=== PATIENT | female | born 1970 | race Caucasian/White ===

== ENCOUNTER 2018-02-09 15:51 | Emergency (ER) | payer SELFPAY ==
--- NOTE | 2018-02-09 17:18 | EDPHYS ---
Physician Documentation [facility] Name: Milady Peoples Age: 48 yrs Sex: Female : 1970 Arrival Date: 02/09/2018 Time: 15:57 Bed 12 Private MD: None, None ED Physician Rad Trejo HPI: 02/09 17:15 This 48 yrs old Female presents to ER via Ambulatory with complaints of Sore kb Throat. 17:15 The patient presents with sore throat. The patient describes throat pain as constant. kb Onset: The symptoms/episode began/occurred 4 day(s) ago. Severity of symptoms: At their worst the symptoms were moderate, in the emergency department the symptoms are unchanged. Modifying factors: The symptoms are alleviated by nothing, the symptoms are aggravated by swallowing, Patient's oral intake status: good Denies contact with similarly ill indivduals. Associated signs and symptoms: Pertinent positives: chills, cough, earache, fever, flu-like symptoms, Sore throat. The patient has not experienced similar symptoms in the past. The patient has not recently seen a physician. 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 - Social history:: Smoking status: Patient/guardian denies using tobacco, Patient/guardian denies using alcohol. - Ebola Screening: : Patient negative for fever greater than or equal to 101.5 degrees Fahrenheit, and additional compatible Ebola Virus Disease symptoms Patient denies exposure to infectious person Patient denies travel to an Ebola-affected area in the 21 days before illness onset. ROS: 17:14 Neck: Negative for injury, pain, and swelling, Cardiovascular: Negative for chest pain, kb palpitations, and edema, Abdomen/GI: Negative for abdominal pain, nausea, vomiting, diarrhea, and constipation, Back: Negative for injury and pain, MS/Extremity: Negative for injury and deformity, Skin: Negative for injury, rash, and discoloration, Neuro: Negative for headache, weakness, numbness, tingling, and seizure. 17:14 Constitutional: Positive for chills, fever, malaise, Negative for body aches, fatigue, poor PO intake, weight loss. 17:14 ENT: Positive for drainage from ear(s), ear pain, rhinorrhea, sinus congestion, sinus pain, sore throat. 17:14 Respiratory: Positive for cough, Negative for dyspnea on exertion, hemoptysis, orthopnea, pleurisy, shortness of breath, sputum production, wheezing. Exam: 17:14 Constitutional: This is a well developed, well nourished patient who is awake, alert, kb and in no acute distress. Head/Face: Normocephalic, atraumatic. Neck: Trachea midline, no thyromegaly or masses palpated, and no cervical lymphadenopathy. Supple, full range of motion without nuchal rigidity, or vertebral point tenderness. No Meningismus. Chest/axilla: Normal chest wall appearance and motion. Nontender with no deformity. No lesions are appreciated. Cardiovascular: Regular rate and rhythm with a normal S1 and S2. No gallops, murmurs, or rubs. Normal PMI, no JVD. No pulse deficits. Respiratory: Lungs have equal breath sounds bilaterally, clear to auscultation and percussion. No rales, rhonchi or wheezes noted. No increased work of breathing, no retractions or nasal flaring. Abdomen/GI: Soft, non-tender, with normal bowel sounds. No distension or tympany. No guarding or rebound. No evidence of tenderness throughout. Back: No spinal tenderness. No costovertebral tenderness. Full range of motion. Skin: Warm, dry with normal turgor. Normal color with no rashes, no lesions, and no evidence of cellulitis. MS/ Extremity: Pulses equal, no cyanosis. Neurovascular intact. Full, normal range of motion. Neuro: Awake and alert, GCS 15, oriented to person, place, time, and situation. Cranial nerves II-XII grossly intact. Motor strength 5/5 in all extremities. Sensory grossly intact. Cerebellar exam normal. Normal gait. 17:14 ENT: External ear(s): are unremarkable, Ear canal(s): purulent discharge, that is minimal, in the left canal, swelling, that is moderate, of the left canal, TM's: bulging, bilaterally. Vital Signs: 16:05 BP 114 / 99; Pulse 105; Resp 18; Temp 98.0(TE); Pulse Ox 98% on R/A; Weight 122.47 kg; hj Height 5 ft. 1 in. (154.94 cm); Pain 8/10; 17:35 BP 120 / 70; Pulse 90; Resp 17; Pulse Ox 100% on R/A; Pain 0/10; mg2 16:05 Body Mass Index 51.02 (122.47 kg, 154.94 cm) hj MDM: 16:20 Patient medically screened. kb 17:15 Data reviewed: vital signs, nurses notes. Data interpreted: Pulse oximetry: on room air kb is 98 %. Interpretation: normal. Counseling: I had a detailed discussion with the patient and/or guardian regarding: the historical points, exam findings, and any diagnostic results supporting the discharge/admit diagnosis, lab results, the need for outpatient follow up, a family practitioner, to return to the emergency department if symptoms worsen or persist or if there are any questions or concerns that arise at home. 02/09 16:07 Order name: Flu; Complete Time: 16:38 02/09 16:07 Order name: Strep; Complete Time: 16:33 02/09 16:27 Order name: Throat Culture EDMS Administered Medications: 17:23 Drug: Clindamycin 300 mg Route: PO; mg2 17:23 Follow up: Response: No adverse reaction; Medication administered at discharge. mg2 Disposition: 02/10 15:56 Co-signature as Attending Physician, Rad Trejo MD I agree with the assessment and kdr plan of care. Disposition: 02/09/18 17:17 Discharged to Home. Impression: Otitis media, unspecified, bilateral, Unspecified otitis externa, left ear, Acute sinusitis. - Condition is Stable. - Discharge Instructions: Otitis Externa, [id number], Otitis Media, Adult, Hmwm-du-Lgem, Sinusitis, Adult, [id number]-[id number]. - Prescriptions for Clindamycin HCl 300 mg Oral Capsule - take 1 capsule by ORAL route every 6 hours for 10 days; 40 capsule. Ciprodex 0.3- 0.1 % Otic Drops, Suspension - instill 4 drop by OTIC route every 12 hours for 7 days , for ears ONLY; 1 Container. - Medication Reconciliation Form, Thank You Letter, Antibiotic Education, Prescription Opioid Use form. - Follow up: Emergency Department; When: As needed; Reason: Worsening of condition. Follow up: Private Physician; When: 2 - 3 days; Reason: Recheck today's complaints, Continuance of care, Re-evaluation by your physician. Signatures: Dispatcher [employer] EDMS Dayna Whalen, MACHINE TOOL TECHNICIAN INSTRUCTOR-C MACHINE TOOL TECHNICIAN INSTRUCTOR-Ckb Rda Trejo MD MD [facility] Mati Mares RN RN Fabrice Ramirez RN RN mg2 Corrections: (The following items were deleted from the chart) 02/09 17:36 17:17 02/09/2018 17:17 Discharged to Home. Impression: Otitis media, unspecified, mg2 bilateral; Unspecified otitis externa, left ear; Acute sinusitis. Condition is Stable. Forms are Medication Reconciliation Form, Thank You Letter, Antibiotic Education, Prescription Opioid Use. Follow up: Emergency Department; When: As needed; Reason: Worsening of condition. Follow up: Private Physician; When: 2 - 3 days; Reason: Recheck today's complaints, Continuance of care, Re-evaluation by your physician. kb
--- NOTE | 2018-02-09 17:18 | ER ---
Nurse's Notes [facility] Name: Milady Peoples Age: 48 yrs Sex: Female : 1970 Arrival Date: 02/09/2018 Time: 15:57 Bed 12 Private MD: None, None Diagnosis: Otitis media, unspecified, bilateral;Unspecified otitis externa, left ear;Acute sinusitis Presentation: 02/09 16:03 Presenting complaint: Patient states: i have sore throat that started Friday and my L hj ear is aching too; reports chills and low grade fever; took Robitussin thsi AM;. Transition of care: patient was not received from another setting of care. Onset of symptoms was February 09, 2018. Risk Assessment: Do you want to hurt yourself or someone else? Patient reports no desire to harm self or others. Initial Sepsis Screen: Does the patient meet any 2 criteria? No. Patient's initial sepsis screen is negative. Does the patient have a suspected source of infection? No. Patient's initial sepsis screen is negative. Care prior to arrival: None. 16:03 Method Of Arrival: Ambulatory 16:03 Acuity: BENJAMÍN 4 hj Triage Assessment: 16:05 General: Appears in no apparent distress. uncomfortable, Behavior is calm, cooperative, hj appropriate for age. Pain: Complains of pain in throat, body. EENT: Reports pain. 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 - Social history:: Smoking status: Patient/guardian denies using tobacco, Patient/guardian denies using alcohol. - Ebola Screening: : Patient negative for fever greater than or equal to 101.5 degrees Fahrenheit, and additional compatible Ebola Virus Disease symptoms Patient denies exposure to infectious person Patient denies travel to an Ebola-affected area in the 21 days before illness onset. Screenin:05 Abuse screen: Denies threats or abuse. Denies injuries from another. Nutritional hj screening: No deficits noted. Tuberculosis screening: No symptoms or risk factors identified. Fall Risk None identified. Assessment: 16:05 Respiratory: Airway is patent Respiratory effort is even, unlabored, Respiratory hj pattern is regular, symmetrical, Breath sounds are clear. EENT: Throat. 17:13 General: Appears in no apparent distress. comfortable, Behavior is calm, cooperative. mg2 Pain: Complains of pain in throat Pain does not radiate. Pain currently is 4 out of 10 on a pain scale. Quality of pain is described as aching, Pain began gradually, 2-3 days ago. Is intermittent. Neuro: Level of Consciousness is awake, alert, obeys commands, Oriented to person, place, time, situation. Cardiovascular: Capillary refill < 3 seconds Patient's skin is warm and dry. GI: No signs and/or symptoms were reported involving the gastrointestinal system. : No signs and/or symptoms were reported regarding the genitourinary system. Derm: Skin is intact, is healthy with good turgor, Skin is pink, warm \T\ dry. normal. Musculoskeletal: No signs and/or symptoms reported regarding the musculoskeletal system. Vital Signs: 16:05 BP 114 / 99; Pulse 105; Resp 18; Temp 98.0(TE); Pulse Ox 98% on R/A; Weight 122.47 kg; hj Height 5 ft. 1 in. (154.94 cm); Pain 8/10; 17:35 BP 120 / 70; Pulse 90; Resp 17; Pulse Ox 100% on R/A; Pain 0/10; mg2 16:05 Body Mass Index 51.02 (122.47 kg, 154.94 cm) ED Course: 15:57 Patient arrived in ED. mr 15:57 None, None is Private Physician. mr 16:04 Triage completed. hj 16:05 Arm band placed on right wrist. hj 16:07 Patient has correct armband on for positive identification. Bed in low position. Call light in reach. Side rails up X 1. Adult w/ patient. 16:18 Fabrice Ramirez, HELEN is Primary Nurse. mg2 16:19 Dayna Whalen FNP-C is PHCP. kb 16:19 Rad Trejo MD is Attending Physician. kb 16:19 No provider procedures requiring assistance completed. Patient did not have IV access mg2 during this emergency room visit. 16:26 Strep Sent. hj 16:26 Flu Sent. hj Administered Medications: 17:23 Drug: Clindamycin 300 mg Route: PO; mg2 17:23 Follow up: Response: No adverse reaction; Medication administered at discharge. mg2 Outcome: 17:17 Discharge ordered by . michell 17:35 Discharged to home ambulatory. mg2 17:35 Condition: improved 17:35 Discharge instructions given to patient, Instructed on discharge instructions, follow up and referral plans. Demonstrated understanding of instructions, follow-up care, medications, Prescriptions given X 2. 17:36 Patient left the ED. mg2 Signatures: Dayna Whalen, PROCESS DESCRIPTION WRITER-C PROCESS DESCRIPTION WRITER-Milady West mr Mati Mares, RN RN Fabrice Cisse, HELEN RN mg2 Corrections: (The following items were deleted from the chart) 16:08 16:05 Pulse 105bpm; Resp 18bpm; Pulse Ox 98% RA; Temp 98.0F Temporal; 122.47 kg; Height 5 ft. 1 in.; BMI: 51.0; Pain 8/10; hj
[2018-02-09] MEDS ORDERED: CLINDAMYCIN HCL 150 MG CAP ONE ×2 (17:25→17:32)
== END 2018-02-09 17:36 | disposition home or self-care (01) ==
LOC: ER 15:51
DX: H66.93 Otitis media, unspecified, bilateral (principal); H60.92 Unspecified otitis externa, left ear; J01.90 Acute sinusitis, unspecified; Z88.0 Allergy status to penicillin; Z88.1 Allergy status to other antibiotic agents; Z88.5 Allergy status to narcotic agent; Z88.6 Allergy status to analgesic agent
CPT/HCPCS: 87070; 87081; 87804; 99283

== ENCOUNTER 2018-03-26 07:51 | Emergency (ER) | payer SELFPAY ==
[2018-03-26] MEDS ORDERED: FENTANYL CITR 100 MCG/2 ML ONE (08:46)
[2018-03-26] MEDS ORDERED: NA CHLORIDE 0.9% 1,000 ML ONE (08:46)
[2018-03-26 08:59] LABS: Absolute Lymphocytes (CBC) 1.8 K/uL (0.7-4.9); Absolute Monocytes 0.7 K/uL (0.1-1.3); Absolute Neutrophil 4.7 K/uL (1.8-8.0); Basophils % 1.1 % (0-1.3); Eosinophils % 2.2 % (0-4.4); Hematocrit 39.7 % (36.0-45.0); Lymphocytes % 24.1 % (15.3-44.8); MPV 8.5 fL (7.6-11.3); Monocytes % 9.2 % (3.3-12.3)
[2018-03-26 09:09] LABS: Urine Blood NEGATIVE (NEG); Urine Glucose NEGATIVE (NEG); Urine Protein NEGATIVE (NEG); Urine pH 5.5 (5.0-7.0)
[2018-03-26 09:11] LABS: Urine Bacteria <20 /HPF (<20); Urine Culture Reflex Order NOT NEEDED; Urine RBC NONE SEEN /HPF (NONE SEEN)
[2018-03-26 09:24] LABS: Albumin 3.9 g/dL (3.4-5.0); Bilirubin Direct 0.1 mg/dL (0-0.2); Bilirubin Total 0.5 mg/dL (0.2-1.0); Potassium 4.6 mmol/L (3.5-5.1); Protein, Total 8.2 g/dL (6.4-8.2)
--- NOTE | 2018-03-26 09:51 | RAD REPORT ---
EXAM DESCRIPTION: CT - Stone Protocol - 03/26/2018 8:57 am CLINICAL HISTORY: Abdominal pain COMPARISON: None. TECHNIQUE: Axial [address] imaging of the abdomen and pelvis was performed without IV contrast. No IV contrast was given because of allergy, abnormal renal function, patient refusal or physician re quest. No oral contrast administered. All CT scans are performed using dose optimization technique as appropriate and may include automated exposure control or mA/KV adjustment according to patient size. FINDINGS: No suspicious findings in the lung bases. No pericardial thickening or effusion. The liver, spleen and pancreas show no suspicious findings on non-contrast imaging. Liver attenuation is borderline to mildly fatty infiltrated. Cholecystectomy clips are present. No biliary tree dilata tion. No hydronephrosis or suspicious renal mass. No significant adrenal finding. Isodense renal masses an d pyelonephritis cannot be excluded in the absence of IV contrast. Urinary bladder is mostly contract ed limiting assessment. No bladder calculus. Patient has numerous phleboliths in the pelvic floor. Ut erus and ovaries show no suspicious findings. Uterine contour is minimally lobulated. Patient may hav e small fibroids but no acute or significant finding at this time. No dilated bowel loops or bowel wall thickening. Appendix is normal. No free air, free fluid or infla mmatory stranding. No mass or bulky lymphadenopathy. No omental thickening. Patient has a 6 centimete r fat only periumbilical hernia with a 4.5 centimeter neck. No congested or edematous fat within this hernia. Disc and bony degenerative changes are present. No acute bone finding. IMPRESSION: No hydronephrosis, obstructing calculus or acute finding identifiable. Isodense zamzam s and pyelonephritis are not excluded on a noncontrast study. No acute GI or OPTICAL INSTRUMENT INSPECTOR process. Liver is borderline to mildly fatty infiltrated. Gallbladder is out with no biliary tree dilatation. A 6 centimeter periumbilical ventral hernia is seen with no acute component. This contains only fat. Full assessment is limited is the absence of IV contrast.
[2018-03-26] MEDS ORDERED: KETOROLAC 30 MG/ML INJ ONE (11:30)
[2018-03-26] MEDS ORDERED: PROMETHAZINE 25 MG/ML VIAL ONE (11:30)
--- NOTE | 2018-03-26 11:58 | ER ---
Nurse's Notes [facility] Name: Milady Peoples Age: 48 yrs Sex: Female : 1970 Arrival Date: 03/26/2018 Time: 07:53 Bed 20 Private MD: Diagnosis: Headache;Lower abdominal pain, unspecified Presentation: 03/26 07:59 Presenting complaint: Patient states: since Friday I have been having a migraine and friday i started having stomach pain on my lower right stomach and it hurts into my back, nauseous. Transition of care: patient was not received from another setting of care. Onset of symptoms was March 26, 2018. Risk Assessment: Do you want to hurt yourself or someone else? Patient reports no desire to harm self or others. Initial Sepsis Screen: Does the patient meet any 2 criteria? HR > 90 bpm. No. Patient's initial sepsis screen is negative. Does the patient have a suspected source of infection? No. Patient's initial sepsis screen is negative. Care prior to arrival: None. 07:59 Method Of Arrival: Ambulatory tw 07:59 Acuity: BENJAMÍN 3 tw2 Triage Assessment: 08:09 Headache History: The patient has had previous headaches and this one is similar to tw2 previous episodes. General: Appears in no apparent distress. obese, Behavior is calm, cooperative, appropriate for age. Pain: Pain currently is 9 out of 10 on a pain scale. Pain began 2-3 days ago. Also complains of nausea, photophobia. Neuro: Level of Consciousness is awake, alert, obeys commands, Oriented to person, place, time, situation. 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 - Social history:: Smoking status: . - Ebola Screening: : Patient denies travel to an Ebola-affected area in the 21 days before illness onset. Screenin:03 Abuse screen: Denies threats or abuse. Nutritional screening: No deficits noted. tw2 Tuberculosis screening: No symptoms or risk factors identified. Fall Risk None identified. Assessment: 08:10 General: Appears in no apparent distress. obese, Behavior is calm, cooperative, tw2 appropriate for age. Pain: Complains of pain in head and lower right abdomen and back. Neuro: Level of Consciousness is awake, alert, obeys commands, Oriented to person, place, time, situation. Cardiovascular: Heart tones S1 S2 Patient's skin is warm and dry. Respiratory: Airway is patent Respiratory effort is even, unlabored, Respiratory pattern is regular, symmetrical, Breath sounds are clear bilaterally. GI: Abdomen is round non-distended, obese, Bowel sounds present X 4 quads. Reports lower abdominal pain, nausea. : No signs and/or symptoms were reported regarding the genitourinary system. EENT: No signs and/or symptoms were reported regarding the EENT system. Derm: No signs and/or symptoms reported regarding the dermatologic system. Musculoskeletal: Reports pain in back. 09:07 Reassessment: Patient appears in no apparent distress at this time. No changes from tw2 previously documented assessment. Patient and/or family updated on plan of care and expected duration. Pain level reassessed. Patient is alert, oriented x 3, equal unlabored respirations, skin warm/dry/pink. 10:28 Reassessment: Patient states that her headache has not gotten any better and she would aj1 like something else for pain. Notified Laura Villalpando NP. No orders received at this time. 11:30 Reassessment: Patient appears in no apparent distress at this time. No changes from aj1 previously documented assessment. Patient and/or family updated on plan of care and expected duration. Pain level reassessed. Patient is alert, oriented x 3, equal unlabored respirations, skin warm/dry/pink. 12:20 Reassessment: Patient appears in no apparent distress at this time. No changes from aj1 previously documented assessment. Patient and/or family updated on plan of care and expected duration. Pain level reassessed. Patient is alert, oriented x 3, equal unlabored respirations, skin warm/dry/pink. Vital Signs: 08:00 BP 145 / 101; Pulse 97; Resp 18; Temp 98.2(O); Pulse Ox 97% on R/A; Pain 9/10; tw2 09:07 BP 150 / 92; Pulse 85; Resp 17; Pulse Ox 96% on R/A; tw2 10:29 BP 114 / 77; Pulse 85; Resp 18; Pulse Ox 97% on R/A; aj1 11:30 BP 112 / 95; Pulse 66; Resp 18; Pulse Ox 96% on R/A; aj1 12:21 BP 116 / 82; Pulse 75; Resp 18; Pulse Ox 99% on R/A; aj1 Remington Coma Score: 11:59 Eye Response: spontaneous(4). Verbal Response: oriented(5). Motor Response: obeys snw commands(6). Total: 15. ED Course: 07:53 Patient arrived in ED. as 07:56 Danuta Villalpando FNP-C is [facility]. snw 07:58 Debbie Covington RN is Primary Nurse. tw2 07:59 Rad Trejo MD is Attending Physician. snw 08:00 Triage completed. tw2 08:03 Arm band placed on. tw2 08:08 Bed in low position. Call light in reach. Pulse ox on. NIBP on. tw2 08:12 Urine --Ancillary (enter results) Sent. tw2 08:12 Urine Dipstick--Ancillary (enter results) Sent. tw2 08:47 Missed attempt(s): 22 gauge in left antecubital area. Bleeding controlled, band aid tw2 applied, catheter tip intact. Missed attempt(s): 22 gauge in left antecubital area. Bleeding controlled, band aid applied, catheter tip intact. 08:50 Inserted saline lock: 22 gauge in left antecubital area, using aseptic technique. tw2 ,using aseptic technique. per Shameka Andrews, class c driver Blood collected. 08:55 CT completed. Patient tolerated procedure well. Patient moved to CT via wheelchair. sj Patient moved back from CT. 09:09 CT Stone Protocol In Process Unspecified. EDMS 09:55 Report given to HELEN Nair. tw2 12:21 No provider procedures requiring assistance completed. IV discontinued, intact, aj1 bleeding controlled, No redness/swelling at site. Pressure dressing applied. Administered Medications: 08:51 Drug: NS 0.9% 1000 ml Route: IV; Rate: 1 bolus; Site: left antecubital; tw2 11:47 Follow up: IV Status: Completed infusion; IV Intake: 1000ml aj1 08:51 Drug: fentaNYL (PF) 25 mcg Route: IVP; Site: left antecubital; tw2 10:00 Follow up: Response: No adverse reaction aj1 10:00 Follow up: Response: Pain is unchanged, physician notified aj1 11:31 Drug: Phenergan 6.25 mg Route: IVP; Site: left antecubital; aj1 12:21 Follow up: Response: No adverse reaction; Pain is decreased aj1 11:31 Drug: TORadol 30 mg Route: IVP; Site: left antecubital; aj1 12:22 Follow up: Response: No adverse reaction; Pain is decreased aj Intake: 11:47 IV: 1000ml; Total: 1000ml. aj1 Outcome: 11:57 Discharge ordered by . shmuel 12:21 Discharged to home ambulatory. aj1 12:21 Condition: good 12:21 Discharge instructions given to patient, Instructed on discharge instructions, follow up and referral plans. medication usage, Demonstrated understanding of instructions, follow-up care, medications, Prescriptions given X 2. 12:22 Patient left the ED. aj1 Signatures: Dispatcher [employer] Es Valdez, RN RN aj1 Danuta Villalpando, LOFT WORKER APPRENTICE-C LOFT WORKER APPRENTICE-Shameka Garcia Amelia as Wise, Tara, RN RN tw2
--- NOTE | 2018-03-26 11:58 | EDPHYS ---
Physician Documentation [facility] Name: Milady Peoples Age: 48 yrs Sex: Female : 1970 Arrival Date: 03/26/2018 Time: 07:53 Bed 20 Private MD: ED Physician Rad Trejo HPI: 03/26 08:52 This 48 yrs old Female presents to ER via Ambulatory with complaints of snw Headache, Abdominal Pain. 08:52 The patient complains of pain to the entire head. The patient describes the headache as snw intermittent. Onset: The symptoms/episode began/occurred 4 day(s) ago, and became persistent. Associated signs and symptoms: Pertinent positives: nausea, abdominal pain. Severity of symptoms: At its worst the pain was moderate. Headache History: Other + family hx of migraine. The patient has not experienced similar symptoms in the past. The patient has not recently seen a physician. STRE[facility] [employer]: 08:09 LMP 03/13/2018 tw2 Historical: - Allergies: 08:02 Aspirin; tw2 08:02 Codeine; tw2 08:02 PENICILLINS; tw2 08:02 zpac; tw2 - Home Meds: 08:02 Adipex-P 37.5 mg oral tab 0.5 tab 2 times per day [Active]; tw2 - PMHx: 08:02 None; tw2 - PSHx: 08:02 R arm; Cholecystectomy; cleft palate; tw2 - Immunization history:: Adult Immunizations. - Social history:: Smoking status: . - Ebola Screening: : Patient denies travel to an Ebola-affected area in the 21 days before illness onset. ROS: 08:50 Constitutional: Negative for fever, chills, and weight loss, Eyes: Negative for injury, snw pain, redness, and discharge, ENT: Negative for injury, pain, and discharge, Neck: Negative for injury, pain, and swelling, Cardiovascular: Negative for chest pain, palpitations, and edema, Respiratory: Negative for shortness of breath, cough, wheezing, and pleuritic chest pain. 08:50 : Negative for injury, bleeding, discharge, and swelling, MS/Extremity: Negative for injury and deformity, Skin: Negative for injury, rash, and discoloration. 08:50 Abdomen/GI: Positive for abdominal pain, nausea. 08:50 Back: Positive for radiated pain. 08:50 Neuro: Positive for headache. Exam: 08:50 Head/Face: Normocephalic, atraumatic. Eyes: Pupils equal round and reactive to light, snw extra-ocular motions intact. Lids and lashes normal. Conjunctiva and sclera are non-icteric and not injected. Cornea within normal limits. Periorbital areas with no swelling, redness, or edema. ENT: Nares patent. No nasal discharge, no septal abnormalities noted. Tympanic membranes are normal and external auditory canals are clear. Oropharynx with no redness, swelling, or masses, exudates, or evidence of obstruction, uvula midline. Mucous membranes moist. Neck: Trachea midline, no thyromegaly or masses palpated, and no cervical lymphadenopathy. Supple, full range of motion without nuchal rigidity, or vertebral point tenderness. No Meningismus. Chest/axilla: Normal chest wall appearance and motion. Nontender with no deformity. No lesions are appreciated. Cardiovascular: Regular rate and rhythm with a normal S1 and S2. No gallops, murmurs, or rubs. Normal PMI, no JVD. No pulse deficits. Respiratory: Lungs have equal breath sounds bilaterally, clear to auscultation and percussion. No rales, rhonchi or wheezes noted. No increased work of breathing, no retractions or nasal flaring. 08:50 Back: No spinal tenderness. No costovertebral tenderness. Full range of motion. Skin: Warm, dry with normal turgor. Normal color with no rashes, no lesions, and no evidence of cellulitis. MS/ Extremity: Pulses equal, no cyanosis. Neurovascular intact. Full, normal range of motion. Neuro: Awake and alert, GCS 15, oriented to person, place, time, and situation. Cranial nerves II-XII grossly intact. Motor strength 5/5 in all extremities. Sensory grossly intact. Cerebellar exam normal. Normal gait. 08:50 Constitutional: The patient appears alert, awake, obese. 08:50 Abdomen/GI: Inspection: abdomen appears normal, obese Bowel sounds: normal, Palpation: mild abdominal tenderness, in the right lower quadrant. Vital Signs: 08:00 BP 145 / 101; Pulse 97; Resp 18; Temp 98.2(O); Pulse Ox 97% on R/A; Pain 9/10; tw2 09:07 BP 150 / 92; Pulse 85; Resp 17; Pulse Ox 96% on R/A; tw2 10:29 BP 114 / 77; Pulse 85; Resp 18; Pulse Ox 97% on R/A; aj1 11:30 BP 112 / 95; Pulse 66; Resp 18; Pulse Ox 96% on R/A; aj1 12:21 BP 116 / 82; Pulse 75; Resp 18; Pulse Ox 99% on R/A; aj1 [place] Coma Score: 11:59 Eye Response: spontaneous(4). Verbal Response: oriented(5). Motor Response: obeys snw commands(6). Total: 15. MDM: 08:04 Patient medically screened. snw 11:59 Data reviewed: vital signs, nurses notes. Data interpreted: Pulse oximetry: on room air snw is 96 %. Interpretation: acceptable. Counseling: I had a detailed discussion with the patient and/or guardian regarding: the historical points, exam findings, and any diagnostic results supporting the discharge/admit diagnosis, lab results, radiology results, the need for outpatient follow up, to return to the emergency department if symptoms worsen or persist or if there are any questions or concerns that arise at home. Special discussion: Based on the patient's Hx, exam, and Dx evaluation, there is no indication for emergent surgery or inpatient Tx. It is understood by the patient/guardian that if the Sx's persist or worsen they need to return immediately for re-evaluation. Based on the history and exam findings, there is no indication for further emergent testing or inpatient evaluation. I discussed with the patient/guardian the need to see the primary care provider for further evaluation of the symptoms. 03/26 08:10 Order name: Urine Dipstick--Ancillary (enter results); Complete Time: 09:17 em1 03/26 08:10 Order name: Urine --Ancillary (enter results); Complete Time: 09:17 em1 03/26 08:31 Order name: Urine Microscopic Only snw 03/26 08:31 Order name: Flu; Complete Time: 09:17 snw 03/26 08:31 Order name: Basic Metabolic Panel; Complete Time: 09:26 snw 03/26 08:31 Order name: CBC with Diff; Complete Time: 09:22 snw 03/26 08:31 Order name: CT Stone Protocol; Complete Time: 10:28 snw 03/26 08:31 Order name: Hepatic Function; Complete Time: 09:26 snw 03/26 08:31 Order name: Lipase; Complete Time: 09:26 snw 03/26 08:32 Order name: Urine Microscopic Only; Complete Time: 09:17 EDMS 03/26 08:10 Order name: Urine Dipstick-Ancillary (obtain specimen); Complete Time: 08:10 em1 03/26 08:10 Order name: Urine Test (obtain specimen); Complete Time: 08:10 em1 03/26 08:31 Order name: IV Saline Lock; Complete Time: 08:54 snw 03/26 08:31 Order name: Labs collected and sent; Complete Time: 08:54 snw Administered Medications: 08:51 Drug: NS 0.9% 1000 ml Route: IV; Rate: 1 bolus; Site: left antecubital; tw2 11:47 Follow up: IV Status: Completed infusion; IV Intake: 1000ml aj1 08:51 Drug: fentaNYL (PF) 25 mcg Route: IVP; Site: left antecubital; tw2 10:00 Follow up: Response: No adverse reaction aj1 10:00 Follow up: Response: Pain is unchanged, physician notified aj1 11:31 Drug: Phenergan 6.25 mg Route: IVP; Site: left antecubital; aj1 12:21 Follow up: Response: No adverse reaction; Pain is decreased aj1 11:31 Drug: TORadol 30 mg Route: IVP; Site: left antecubital; aj1 12:22 Follow up: Response: No adverse reaction; Pain is decreased aj1 Disposition: 14:09 Co-signature as Attending Physician, Rad Trejo MD I agree with the assessment and kdr plan of care. Disposition: 03/26/18 11:57 Discharged to Home. Impression: Headache, Lower abdominal pain, unspecified. - Condition is Stable. - Discharge Instructions: Abdominal Pain, Adult, General Headache Without Cause, Rehydration, Adult. - Prescriptions for orphenadrine citrate 100 mg Oral Tablet Sustained Release - take 1 tablet by ORAL route 2 times per day As needed; 20 tablet. promethazine 25 mg Oral Tablet - take 1 tablet by ORAL route every 6 hours As needed; 20 tablet. - Work release form, Medication Reconciliation Form, Thank You Letter, Antibiotic Education, Prescription Opioid Use form. - Follow up: Private Physician; When: 2 - 3 days; Reason: Recheck today's complaints, Continuance of care, Re-evaluation by your physician. Follow up: Emergency Department; When: As needed; Reason: Worsening of condition. Signatures: Dispatcher [employer] EDEs Edwards, HELEN RN aj1 Rad Trejo MD MD [facility] Danuta Villalpando, PAYROLL AND BENEFITS ASSISTANT-C PAYROLL AND BENEFITS ASSISTANT-Santosh Swift em1 Debbie Covington RN RN tw2 Corrections: (The following items were deleted from the chart) 12:22 11:57 03/26/2018 11:57 Discharged to Home. Impression: Headache; Lower abdominal pain, aj1 unspecified. Condition is Stable. Forms are Medication Reconciliation Form, Thank You Letter, Antibiotic Education, Prescription Opioid Use. Follow up: Private Physician; When: 2 - 3 days; Reason: Recheck today's complaints, Continuance of care, Re-evaluation by your physician. Follow up: Emergency Department; When: As needed; Reason: Worsening of condition. snw
== END 2018-03-26 12:22 | disposition home or self-care (01) ==
LOC: ER 07:51
DX: R10.30 Lower abdominal pain, unspecified (principal); Z88.0 Allergy status to penicillin; Z88.5 Allergy status to narcotic agent; Z88.6 Allergy status to analgesic agent
CPT/HCPCS: 36415; 74176; 76377; 80048; 80076; 81003; 81015; 81025; 83690; 85025; 87804; 96361; 96374; 96375; 99284; J2550; J3010; J7030